=== PATIENT | male | born 2000 | race Caucasian/White ===

== ENCOUNTER 2020-09-08 10:10 | Emergency (ER) | payer OTHER ==
[~2020-09-08] VITALS: Ht 172.7 cm; Wt 64.4 kg
== END 2020-09-08 10:25 | disposition home or self-care (01) ==
LOC: ED 10:10
DX: S61.214A Laceration without foreign body of right ring finger without damage to nail, initial encounter (principal); W26.8XXA Contact with other sharp object(s), not elsewhere classified, initial encounter